=== PATIENT | male | born 1935 | race Caucasian/White ===

== ENCOUNTER 2016-10-23 11:16 | Day surgery (SDC) | payer MEDICARE, OTHER ==
[2016-10-22 11:27] VITALS: BMI 25.4
[2016-10-23] MEDS ORDERED: Lactated Ringer's 1,000 ML IV ONE ×2 (14:01)
[2016-10-23] MEDS ORDERED: Midazolam 2 MG/2 ML VIAL ONE (15:09)
[2016-10-23] MEDS ORDERED: Propofol 10 mg/ml Inj (20 ML) ONE (15:10)
[2016-10-23] MEDS ORDERED: cefTRIAXone IV 1 gm in Dextros 50 ML IVPB ONE (15:11)
[2016-10-23] MEDS ORDERED: Oxycodone/Acetaminophen 5/325 mg Tab PO PRN (16:03)
[2016-10-23] MEDS ORDERED: HYDROmorphone 0.5 mg/0.5 ml ISec IVP PRN (16:47)
[2016-10-23] MEDS ORDERED: HYDROmorphone 0.5 mg/0.5 ml ISec ONE (16:48)
[2016-10-23] MEDS ORDERED: Gentamicin 80 mg in 0.9% NS 80 MG/100 ML BAG IVPB SCH (17:00)
[2016-10-23] MEDS ORDERED: Gentamicin 80 mg in 0.9% NS 80 MG/100 ML BAG IVPB ONE (17:00)
[2016-10-23 17:36] VITALS: TEMP 97.8
[2016-10-23 17:59] VITALS: RESP 12; O2SAT 98
[2016-10-23 18:17] VITALS: BP 145/86; PULSE 73
--- NOTE | 2016-12-01 19:29 | OP ---
PREOPERATIVE DIAGNOSES: Gross hematuria, voiding dysfunction, urinary retention, and bladder neck contracture. POSTOPERATIVE DIAGNOSES: Gross hematuria, voiding dysfunction, urinary retention, bladder neck contracture, and calcifications stuck at the bladder neck. PROCEDURES: Cystoscopy and resection of the bladder neck. COMPLICATIONS: There were no complications. DRAIN: A March catheter. BLOOD LOSS: Less than 10 mL. INDICATIONS: See the history and physical for the details. A very pleasant gentleman whom I have known quite well for some time. He has had a previous PVP GreenLight laser therapy. He has also had other strictures and contractures. He has also had some urethral stricture disease. He is very pleasant about it. He has had recurrence. I have discussed with him the idea of intermittent catheterization. FINDINGS: Today's findings are significantly concerning because the anterior urethra is relatively open. There is no pinpoint strictures. Prostate from the viewer end is relatively open and nicely resected. At the bladder neck, this mass is contracted but there is slight calcifications. It feels like stone. You cannot feel it with your hands but just the instrument touching it and that looks like what appears to be stone *------*. At the termination of the procedure, we were able to open up the bladder neck nicely. Within the urinary bladder itself, the other findings are there is no bladder cancers or the alike. INDICATIONS: See the history and physical for further details. A very pleasant gentleman, here for the above procedure. We discussed risks, benefits, and treatment alternatives. DESCRIPTION OF PROCEDURE: After obtaining informed consent, the patient was placed on the table. Routine monitors were placed. Time-out was called to confirm the patient and positioning. Antibiotic prophylaxis was given. We introduced the scope via the urethra. I knew there would be trouble at the bladder neck from office cystoscope. The anterior urethra was relatively open. No pinpoint strictures. The procedure continued. We identified at the bladder neck tightness. We used the ureteral catheter to get through the bladder neck. However, it needed a maldonado resection. On further inspection at the bladder neck, it was calcified. So I resected some of these tissues with some difficulty but we were able to open and then irrigate these out. These were sent for pathologic evaluation. Within the bladder itself, there was no bladder cancers or tumors identified. We left the March catheter via the urethra. The patient tolerated this well without complication. ADDENDUM: The plan will be to have the patient catheterize himself and then we have to discuss other options. I am very concerned for the patient's long-term planning. We will have to discuss options, but I would think intermittent catheterization would be the most likely possibility for his best result. Pop Burch MD
== END 2016-10-23 18:15 | disposition home or self-care (01) ==
LOC: C.SDS 11:16
PROVIDERS: ATTEND Urology
DX: N32.0 Bladder-neck obstruction (principal); R31.9 Hematuria, unspecified
CPT/HCPCS: 52500; 82365; 88305; A4358; C1887; J0696; J1170; J1580; J7120